=== PATIENT | male | born 1965 | race African-American/Black ===

== ENCOUNTER 2017-02-17 19:05 | Emergency (ER) | payer OTHER ==
[~2017-02-17 19:05] MED LIST: ASPIRIN325 M1 PO; FAMOTIDINE PO; FLEXERIL10 MG PO; FLUOXETINE HCL20 M1 PO; FOLIC ACID1 MG PO; HYDROCHLOROTHIA25 MG PO; KETOPROFEN PO; LISINOPRIL10 MG PO; PHENERGAN25 MG PO; UNKNOWN MEDS
== END 2017-02-17 19:08 | disposition home or self-care (01) ==
LOC: SED 19:05
DX: Z04.3 Encounter for examination and observation following other accident (principal); V49.10XA Passenger injured in collision with unspecified motor vehicles in nontraffic accident, initial encounter; F17.210 Nicotine dependence, cigarettes, uncomplicated; I10 Essential (primary) hypertension; Z86.73 Personal history of transient ischemic attack (TIA), and cerebral infarction without residual deficits
CPT/HCPCS: 99283